=== PATIENT | male | born 1965 | race Caucasian/White ===

== ENCOUNTER 2018-02-16 19:07 | Emergency (ER) | payer SELFPAY ==
[~2018-02-16] VITALS: Ht 182.9 cm; Wt 90.0 kg
[2018-02-16] MEDS ORDERED: SODIUM CHLORIDE FLUSH 10ML SYR IVF ONE (19:30)
[2018-02-16] MEDS ORDERED: SODIUM CHLORIDE 0.9% 1,000ML IVBOLUS ONE (19:30)
[2018-02-16] MEDS ORDERED: PLEASE ENTER HEIGHT AND WEIGHT MC SCH (19:30)
[2018-02-16 19:56] LABS: PH, VENOUS 7.309 pH (7.320-7.420)
[2018-02-16 20:03] LABS: BASOPHILS # (AUTO) 0.06 x10^3/uL (0-0.1); BASOPHILS % (AUTO) 1 % (0-1); EOSINOPHILS # (AUTO) 0.13 x10^3/uL (0-0.4); EOSINOPHILS % (AUTO) 1 % (1-7); LYMPHOCYTES # (AUTO) 2.66 x10^3/uL (1-3.4); LYMPHOCYTES % (AUTO) 27 % (22-44); MD NO; MEAN CORPUSCULAR HEMOGLOBIN 28.5 pg (27.5-34.5); MEAN CORPUSCULAR HGB CONC 34.6 g/dL (33.2-36.2); MEAN CORPUSCULAR VOLUME 82.4 fL (81-97); MEAN PLATELET VOLUME 8.1 fL (7.4-10.4); MONOCYTES # (AUTO) 0.37 x10^3/uL (0.2-0.8); MONOCYTES % (AUTO) 4 % (2-9); NEUTROPHILS % (AUTO) 67 % (42-75); PLATELET COUNT 489 x10^3/uL (130-400); RED BLOOD COUNT 5.87 x10^6/uL (4.38-5.82); RED CELL DISTRIBUTION WIDTH 14.6 % (9.4-14.8)
[2018-02-16 20:08] LABS: ACETONE, SERUM Negative (Negative); ALBUMIN 4.1 g/dL (3.4-5.0); ANION GAP 14 mmol/L (5-15); CALCIUM 8.3 mg/dL (8.5-10.1); CHLORIDE 113 mmol/L (98-107)
[2018-02-16 20:10] LABS: ALANINE AMINOTRANSFERASE 39 U/L (12-78); ALKALINE PHOSPHATASE 118 U/L (45-117); BILIRUBIN,TOTAL 0.7 mg/dL (0.2-1.0); CREATININE 0.92 mg/dL (0.7-1.3); TOTAL PROTEIN 7.1 g/dL (6.4-8.2)
[2018-02-16 20:11] LABS: SALICYLATE LEVEL < 1.7 mg/dL (2.8-20.0)
[2018-02-16 20:12] LABS: ACETAMINOPHEN < 2 mcg/mL (10-30)
[2018-02-16 21:26] VITALS: BP 131/74
[2018-02-16 21:47] LABS: AMPHETAMINE SCREEN, URINE Negative (Negative); BARBITURATE SCREEN, URINE Negative (Negative); BENZODIAZEPINE SCREEN, URINE Positive (Negative); CANNABINOID SCREEN, URINE Negative (Negative); COCAINE SCREEN, URINE Negative (Negative); METHADONE SCREEN, URINE Negative (Negative); OPIATE SCREEN, URINE Negative (Negative)
[2018-02-16] MEDS ORDERED: ACETAMINOPHEN 325 MG TABLET ONE (21:55)
[2018-02-16] MEDS ORDERED: ACETAMINOPHEN 325 MG TABLET PO ONE (22:00)
[2018-02-17] MEDS ORDERED: PROMETHAZINE 25 MG/ML, 1ML IM ONE (00:30)
== END 2018-02-17 00:59 | disposition home or self-care (01) ==
LOC: ED 22:12
DX: R41.82 Altered mental status, unspecified (principal); F10.129 Alcohol abuse with intoxication, unspecified; F19.10 Other psychoactive substance abuse, uncomplicated; I10 Essential (primary) hypertension; F32.9 Major depressive disorder, single episode, unspecified
CPT/HCPCS: 36415; 80053; 80307; 80329; 82010; 82803; 83930; 85025; 93005; 96360; 96361; 99285; J7030; G0480

== ENCOUNTER 2020-04-01 03:46 | Inpatient (IN) | payer MEDICARE ==
[~2020-04-01] VITALS: Ht 182.9 cm; Wt 83.8 kg
[2020-04-01] VITALS (8 sets, daily range): BP systolic 80–104; BP diastolic 46–60
[2020-04-01] MEDS ORDERED: SODIUM CHLORIDE 0.9% 1,000ML IVBOLUS ONE ×3 (04:30→06:30)
[2020-04-01] MEDS ORDERED: PHARMACOKINETIC CONSULTATION MC ONE ×2 (04:30→12:00)
[2020-04-01] MEDS ORDERED: VANCOMYCIN PER PHARMACY MC ONE (04:30)
[2020-04-01] MEDS ORDERED: PIPERACILLIN/TAZO/PMX 3.375GM 50 ML IVPB ONE (04:30)
[2020-04-01] MEDS ORDERED: PIPERACILLIN/TAZO/PMX 3.375GM 50 ML ONE ×2 (04:44→08:38)
[2020-04-01] MEDS ORDERED: MORPHINE SULFATE 4 MG/ML, 1ML ONE ×2 (04:44→05:43)
[2020-04-01] MEDS: MORPHINE SULFATE 4 MG/ML, 1ML IVPush PRN ×2 (04:51→05:47)
[2020-04-01 04:59] LABS: MEAN CORPUSCULAR HEMOGLOBIN 26.3 pg (27.5-34.5); MEAN CORPUSCULAR HGB CONC 32.6 g/dL (33.2-36.2); MEAN PLATELET VOLUME 7.9 fL (7.4-10.4); PLATELET COUNT 487 x10^3/uL (130-400); RED CELL DISTRIBUTION WIDTH 15.6 % (9.4-14.8)
[2020-04-01] MEDS ORDERED: VANCOMYCIN 2,300 MG in SODIUM CHLORIDE 0.9% 500 ML IV ONE (05:00)
[2020-04-01 05:12] LABS: ALBUMIN 2.3 g/dL (3.4-5.0); ANION GAP 13 mmol/L (5-15); CALCIUM 8.6 mg/dL (8.5-10.1); CHLORIDE 103 mmol/L (98-107)
[2020-04-01 05:15] LABS: ALANINE AMINOTRANSFERASE 25 U/L (12-78); ALKALINE PHOSPHATASE 164 U/L (45-117); CREATININE 1.66 mg/dL (0.7-1.3); TOTAL PROTEIN 6.8 g/dL (6.4-8.2)
--- NOTE | 2020-04-01 05:21 | NUR ---
pt here for swelling and pain to left thigh. Piv placed. fluids and abx running. pt medicated for pain. us at bedside. call light in reach
--- NOTE | 2020-04-01 05:24 | NUR ---
PT TO CT
[2020-04-01 05:26] LABS: MD YES
[2020-04-01 05:30] LABS: ANISOCYTOSIS 1+; BAND#(MANUAL) 2.97 x10^3/uL; BANDS%(MANUAL) 18 % (0-7); EOS#(MANUAL) 0.17 x10^3/uL (0.0-0.4); EOS% (MANUAL) 1 % (1-7); LYMPH#(MANUAL) 0.83 x10^3/uL (1-3.4); LYMPHS% (MANUAL) 5 % (22-44); MONOS#(MANUAL) 1.16 x10^3/uL (0.3-2.7); MONOS% (MANUAL) 7 % (2-9); SEG#(MANUAL) 11.39 x10^3/uL (1.8-6.8); SEGS% (MANUAL) 69 % (42-75)
[2020-04-01] MEDS ORDERED: INSULIN REGULAR 100 UNITS/ML, 3ML VIAL IVPush ONE (05:30)
[2020-04-01] MEDS ORDERED: POTASSIUM CHLORIDE 20 MEQ in SODIUM CHLORIDE 0.9% 250 ML IV ONE (05:30)
[2020-04-01 05:31] LABS: <PLATELET ESTIMATE> INCREASED; <PLT MORPHOLOGY> NORMAL PLT MORPH; POLYCHROMASIA 1+
[2020-04-01] MEDS ORDERED: OMNIPAQUE 350 MG/ML, 100ML BOTTLE ONE (05:44)
[2020-04-01] MEDS ORDERED: METF500T17 PO (06:00)
[2020-04-01] MEDS ORDERED: INSULIN SINGLE DOSE, ER ONE (06:11)
[2020-04-01] MEDS ORDERED: SODIUM CHLORIDE 0.9% 1,000 ML IV ONE (06:19)
--- NOTE | 2020-04-01 06:20 | NUR ---
PT REPORTS FEELING DECREASE IN PAIN TO LEFT LEG AFTER MORPHINE. INFORMED PT OF ADMIT STATUS AND POSSIBLE OR. NPO. RR EQUAL AND UNLABORED, VSS, CALL LIGHT IN REACH. AIDET PROVIDED.
[2020-04-01] MEDS ORDERED: NOREPINEPHRINE 8 MG in SODIUM CHLORIDE 0.9% 242 ML IV PRN ×3 (06:30→18:46)
[2020-04-01] MEDS ORDERED: POLYETHYLENE GLYCOL 17 GM PACKET PO PRN (06:30)
[2020-04-01] MEDS ORDERED: PIPERACILLIN/TAZO/PMX 3.375GM 50 ML IV SCH (06:30)
[2020-04-01] MEDS ORDERED: BISACODYL 10 MG SUPP PR PRN (06:30)
[2020-04-01] MEDS ORDERED: CLINDAMYCIN PMX 600MG/50ML 50 ML IV ONE (06:30)
[2020-04-01] MEDS ORDERED: LORazepam 2 MG/ML, 1ML IVPush PRN (06:30)
[2020-04-01] MEDS ORDERED: VANCOMYCIN PER PHARMACY MC PRN (06:30)
[2020-04-01] MEDS ORDERED: LABETALOL 5MG/ML, 20ML IVPush PRN (06:30)
[2020-04-01] MEDS ORDERED: ONDANSETRON 2MG/ML, 2ML IVPush PRN (06:30)
[2020-04-01] MEDS: ENOXAPARIN 40 MG/0.4 ML SQ SCH (06:30)
[2020-04-01] MEDS ORDERED: CLINDAMYCIN PMX 900MG/50ML 50 ML IV SCH (06:30)
[2020-04-01] MEDS ORDERED: HYDROmorphone 1 MG/ML, 1ML INJ ONE ×2 (06:39→10:44)
--- NOTE | 2020-04-01 06:40 | NUR ---
0635: PT MOANING, VERY UNCOMFORTABLE C/O 02/28 PAIN. MEDICATED PER ORDER, AIDET PROVIDED.
[2020-04-01] MEDS: HYDROmorphone 1 MG/ML, 1ML INJ IVPush PRN ×2 (06:41→10:46)
--- NOTE | 2020-04-01 06:58 | NUR ---
SBAR RECEIVED FROM DARLING RN AT PATIENT BEDSIDE.
[2020-04-01] MEDS ORDERED: POTASSIUM CHLORIDE 20 MEQ TAB.ER.PRT PO ONE (07:00)
--- NOTE | 2020-04-01 07:22 | NUR ---
SECOND PIV PLACED. PT RESTING IN BED, CALL LIGHT IN REACH.
[2020-04-01] MEDS ORDERED: CLINDAMYCIN PMX 900MG/50ML 50 ML ONE (07:34)
--- NOTE | 2020-04-01 08:10 | NUR ---
HUMALOG PEN REQUESTED FROM PHARMACY.
[2020-04-01] MEDS ORDERED: morphine SULFATE 10 MG/ML, 1ML ONE ×2 (08:36→09:51)
[2020-04-01] MEDS ORDERED: NS + 40MEQ KCL 1,000 ML IV ONE (08:38)
[2020-04-01] MEDS: morphine SULFATE 10 MG/ML, 1ML IVPush PRN ×4 (08:44→14:23)
[2020-04-01] MEDS: INSULIN LISPRO 100 UNITS/ML, PEN SQ-INSULIN SCH ×4 (08:44→20:25)
[2020-04-01] MEDS: NS + 40MEQ KCL 1,000 ML IV SCH ×2 (08:49→18:14)
[2020-04-01] MEDS ORDERED: MAGNESIUM SULFATE PMX 4GM/100M 100 ML IV ONE (09:00)
--- NOTE | 2020-04-01 09:15 | NUR ---
4 GM Magnesium requested from pharmacy.
[2020-04-01] MEDS: SENNA/DOCUSATE TABLET PO SCH (09:19)
[2020-04-01] MEDS ORDERED: FAMOTIDINE 20 MG/2 ML ONE (09:52)
[2020-04-01] MEDS: FAMOTIDINE 20 MG/2 ML IVPush SCH ×2 (09:56→20:19)
--- NOTE | 2020-04-01 10:53 | NUR ---
PATIENT C/O 8 PAIN, MEDICATED PER eMAR.
--- NOTE | 2020-04-01 10:54 | NUR ---
REPORT GIVEN TO [facility] FOR TRANSFER OF PATIENT CARE.
--- NOTE | 2020-04-01 11:37 | NUR ---
Patient transferred to CCU, all patient belongings gathered and sent with patient. CCU RN took over care.
[2020-04-01] MEDS ORDERED: PHARMACOKINETIC MONITORING MC PRN (12:00)
[2020-04-01] MEDS: PIPERACILLIN/TAZO/PMX 3.375GM 50 ML IV SCH ×2 (12:35→17:55)
[2020-04-01] MEDS: ACETAMINOPHEN 325 MG TABLET PO PRN (12:41)
[2020-04-01] MEDS: CLINDAMYCIN PMX 900MG/50ML 50 ML IV SCH ×2 (14:11→23:22)
[2020-04-01] MEDS ORDERED: FENTANYL PF 250 MCG/5ML ONE (14:23)
[2020-04-01] MEDS ORDERED: KETOROLAC 30 MG/1 ML IVPush PRN (14:30)
[2020-04-01] MEDS ORDERED: BACITRACIN 50,000 UNIT ONE (14:30)
[2020-04-01] MEDS ORDERED: KETOROLAC 30 MG/1 ML ONE (14:34)
[2020-04-01] MEDS ORDERED: PROPOFOL 10 MG/ML, 20ML ONE (15:57)
[2020-04-01] MEDS ORDERED: EPINEPHRINE 1 MG/ML, 1ML ONE (15:57)
[2020-04-01] MEDS ORDERED: PHENYLEPHRINE 10 MG/ML ONE (15:57)
[2020-04-01] MEDS ORDERED: ROCURONIUM 10MG/ML,5ML ONE (15:57)
[2020-04-01] MEDS ORDERED: SUCCINYLCHOLINE 20 MG/ML, 10ML ONE (15:57)
[2020-04-01] MEDS ORDERED: VASOPRESSIN 20 UNIT/ML, 1ML ONE (15:57)
[2020-04-01] MEDS ORDERED: LIDOCAINE-MPF 2% ,5ML ONE (15:57)
[2020-04-01] MEDS ORDERED: NOREPINEPHRINE 1 MG/ML, 4ML ONE (15:58)
[2020-04-01] MEDS ORDERED: ALBUMIN HUMAN 5% 500 ML ONE ×2 (15:59→17:15)
[2020-04-01] MEDS ORDERED: MIDAZOLAM 1 MG/ML, 2ML ONE (16:27)
[2020-04-01] MEDS ORDERED: PROPOFOL 50 ML ONE (16:30)
[2020-04-01 18:39] LABS: MICROSCOPIC INDICATED
[2020-04-01] MEDS ORDERED: PROPOFOL 100 ML IV ONE (18:43)
[2020-04-01] MEDS ORDERED: PROPOFOL 100 ML IV PRN (18:46)
[2020-04-01] MEDS: PROPOFOL 100 ML IV PRN (18:54)
[2020-04-01] MEDS ORDERED: FENTANYL PF 1,000 MCG in SODIUM CHLORIDE 0.9% 80 ML IV PRN (19:00)
[2020-04-01] MEDS ORDERED: LIDOCAINE-MPF 1%, 2ML ENDO PRN (19:00)
[2020-04-01] MEDS ORDERED: ONDANSETRON 2MG/ML, 2ML IV PRN (19:00)
[2020-04-01] MEDS ORDERED: GLUCAGON 1 MG IM PRN (19:00)
[2020-04-01] MEDS ORDERED: DEXTROSE 50%, 50ML SYRINGE IVPush PRN (19:00)
[2020-04-01] MEDS ORDERED: DEXTROSE 4 GM TAB.CHEW PO PRN (19:00)
[2020-04-01] MEDS ORDERED: SENNA/DOCUSATE TABLET NG PRN (19:00)
[2020-04-01] MEDS ORDERED: PHARMACY MAY ADJ FOR RENAL FX MC SCH (19:00)
[2020-04-01] MEDS: FENTANYL PF 1,000 MCG in SODIUM CHLORIDE 0.9% 80 ML IV PRN (19:47)
[2020-04-01] MEDS ORDERED: SODIUM BICARB 8.4%, 50ML SYRINGE ONE (20:11)
[2020-04-01] MEDS: SODIUM CHLORIDE FLUSH 10ML SYR IVF SCH (20:19)
[2020-04-01] MEDS ORDERED: VASOPRESSIN 20 UNIT in SODIUM CHLORIDE 0.9% 99 ML IV PRN (20:30)
[2020-04-01] MEDS ORDERED: SODIUM BICARB 8.4%, 50ML SYRINGE IVPush ONE (20:30)
[2020-04-01] MEDS ORDERED: PHENYLEPHRINE 50 MG in SODIUM CHLORIDE 0.9% 245 ML IV PRN (20:30)
[2020-04-01 21:19] LABS: ANION GAP 12 mmol/L (5-15); CALCIUM 6.3 mg/dL (8.5-10.1); CHLORIDE 115 mmol/L (98-107); CREATININE 1.22 mg/dL (0.7-1.3); TRIGLYCERIDES 141 mg/dL (50-200)
[2020-04-01 21:21] LABS: MEAN CORPUSCULAR HEMOGLOBIN 27.5 pg (27.5-34.5); MEAN CORPUSCULAR HGB CONC 32.8 g/dL (33.2-36.2); MEAN PLATELET VOLUME 8.3 fL (7.4-10.4); PLATELET COUNT 400 x10^3/uL (130-400); RED CELL DISTRIBUTION WIDTH 17.2 % (9.4-14.8)
[2020-04-01 21:23] LABS: MD YES
[2020-04-01 21:29] LABS: BAND#(MANUAL) 3.99 x10^3/uL; BANDS%(MANUAL) 21 % (0-7); BASOS#(MANUAL) 0.19 x10^3/uL (0-0.1); BASOS% (MANUAL) 1 % (0-1); LYMPH#(MANUAL) 1.33 x10^3/uL (1-3.4); LYMPHS% (MANUAL) 7 % (22-44); MONOS#(MANUAL) 0.76 x10^3/uL (0.3-2.7); MONOS% (MANUAL) 4 % (2-9); SEG#(MANUAL) 12.73 x10^3/uL (1.8-6.8); SEGS% (MANUAL) 67 % (42-75)
[2020-04-01 21:30] LABS: ANISOCYTOSIS 1+; HYPOCHROMIA 1+; MICROCYTOSIS 1+; POLYCHROMASIA 1+
[2020-04-01] MEDS ORDERED: CALCIUM GLUCONATE IV ONE (21:30)
[2020-04-01 21:31] LABS: <PLATELET ESTIMATE> ADEQUATE; <PLT MORPHOLOGY> NORMAL PLT MORPH
[2020-04-01] MEDS ORDERED: CALCIUM GLUCONATE 4.6 MEQ in SODIUM CHLORIDE 0.9% 100 ML IV ONE (22:00)
[2020-04-02] VITALS (7 sets, daily range): BP systolic 76–99; BP diastolic 47–60
[2020-04-02] MEDS ORDERED: VANCOMYCIN 1,800 MG in SODIUM CHLORIDE 0.9% 250 ML IV SCH
[2020-04-02] MEDS: PIPERACILLIN/TAZO/PMX 3.375GM 50 ML IV SCH ×5 (00:11→22:57)
[2020-04-02] MEDS: NOREPINEPHRINE 32 MG in SODIUM CHLORIDE 0.9% 218 ML IV PRN ×2 (00:13→13:39)
[2020-04-02] MEDS: PROPOFOL 100 ML IV PRN ×6 (01:54→22:48)
[2020-04-02] MEDS: NS + 40MEQ KCL 1,000 ML IV SCH (04:10)
[2020-04-02 04:15] LABS: MEAN CORPUSCULAR HEMOGLOBIN 28.3 pg (27.5-34.5); MEAN CORPUSCULAR HGB CONC 32.8 g/dL (33.2-36.2); MEAN PLATELET VOLUME 8.5 fL (7.4-10.4); PLATELET COUNT 260 x10^3/uL (130-400); RED BLOOD COUNT 2.95 x10^6/uL (4.38-5.82)
[2020-04-02] MEDS: ACETAMINOPHEN 325 MG TABLET PO PRN ×2 (04:20→07:51)
[2020-04-02 04:23] LABS: ALANINE AMINOTRANSFERASE 18 U/L (12-78); ALBUMIN 1.7 g/dL (3.4-5.0); ANION GAP 8 mmol/L (5-15); CALCIUM 6.4 mg/dL (8.5-10.1); CHLORIDE 120 mmol/L (98-107); CREATININE 1.65 mg/dL (0.7-1.3)
[2020-04-02 04:25] LABS: ALKALINE PHOSPHATASE 69 U/L (45-117); BILIRUBIN,TOTAL 1.9 mg/dL (0.2-1.0); CREATINE KINASE, TOTAL 481 U/L (39-308); TOTAL PROTEIN 4.2 g/dL (6.4-8.2)
[2020-04-02] MEDS: INSULIN LISPRO 100 UNITS/ML, PEN SQ-INSULIN SCH ×4 (04:39→21:19)
[2020-04-02 05:17] LABS: MD YES
[2020-04-02 05:20] LABS: BAND#(MANUAL) 2.04 x10^3/uL; BANDS%(MANUAL) 15 % (0-7); LYMPHS% (MANUAL) 14 % (22-44); MONOS#(MANUAL) 0.95 x10^3/uL (0.3-2.7); MONOS% (MANUAL) 7 % (2-9); SEGS% (MANUAL) 64 % (42-75)
[2020-04-02 05:22] LABS: <PLATELET ESTIMATE> ADEQUATE; ANISOCYTOSIS 1+; MICROCYTOSIS 1+; OVALOCYTES 1+; POLYCHROMASIA 1+
[2020-04-02 05:23] LABS: <PLT MORPHOLOGY> NORMAL PLT MORPH
[2020-04-02] MEDS: CLINDAMYCIN PMX 900MG/50ML 50 ML IV SCH (06:32)
[2020-04-02] MEDS: SODIUM CHLORIDE 0.45% 1,000 ML IV SCH ×2 (06:34→16:01)
[2020-04-02] MEDS: SENNA/DOCUSATE TABLET PO SCH (07:27)
[2020-04-02] MEDS: FAMOTIDINE 20 MG/2 ML IVPush SCH ×2 (08:48→21:18)
[2020-04-02] MEDS: ENOXAPARIN 40 MG/0.4 ML SQ SCH (08:48)
[2020-04-02] MEDS: SODIUM CHLORIDE FLUSH 10ML SYR IVF SCH ×2 (08:49→21:18)
[2020-04-02] MEDS ORDERED: PANTOPRAZOLE 40 MG IV IV SCH (09:00)
[2020-04-02] MEDS: INSULIN GLARGINE 100 UNITS/ML, PEN SQ-INSULIN SCH ×2 (09:00→21:19)
[2020-04-02] MEDS ORDERED: PANTOPRAZOLE 40 MG IV ONE (09:06)
[2020-04-02] MEDS: FENTANYL PF 1,000 MCG in SODIUM CHLORIDE 0.9% 80 ML IV PRN ×2 (09:19→19:23)
[2020-04-02] MEDS ORDERED: SODIUM CHLORIDE 0.9% 1,000ML IVBOLUS ONE (12:30)
[2020-04-02] MEDS: CALCIUM CARBONATE 500 MG TAB.CHEW PO SCH ×2 (16:01→21:18)
[2020-04-02] MEDS ORDERED: ACETAMINOPHEN 650 MG/20.3 ML UDC ONE (17:39)
[2020-04-02] MEDS ORDERED: ACETAMINOPHEN 650 MG/20.3 ML UDC PO PRN (18:00)
[2020-04-03] VITALS (15 sets, daily range): BP systolic 92–120; BP diastolic 45–70
[2020-04-03] MEDS: INSULIN LISPRO 100 UNITS/ML, PEN SQ-INSULIN SCH ×4 (04:06→21:07)
[2020-04-03] MEDS: PIPERACILLIN/TAZO/PMX 3.375GM 50 ML IV SCH (04:06)
[2020-04-03] MEDS: PROPOFOL 100 ML IV PRN ×4 (04:06→23:32)
[2020-04-03 04:12] LABS: ANION GAP 10 mmol/L (5-15); CALCIUM 6.6 mg/dL (8.5-10.1); CHLORIDE 115 mmol/L (98-107); CREATININE 2.48 mg/dL (0.7-1.3)
[2020-04-03 04:30] LABS: MEAN CORPUSCULAR HGB CONC 34.9 g/dL (33.2-36.2); MEAN PLATELET VOLUME 8.5 fL (7.4-10.4); PLATELET COUNT 115 x10^3/uL (130-400); RED BLOOD COUNT 1.87 x10^6/uL (4.38-5.82); RED CELL DISTRIBUTION WIDTH 16.4 % (9.4-14.8)
[2020-04-03 05:18] LABS: MD YES
[2020-04-03 05:22] LABS: ANISOCYTOSIS 1+; BAND#(MANUAL) 2.23 x10^3/uL; BANDS%(MANUAL) 18 % (0-7); LYMPH#(MANUAL) 2.23 x10^3/uL (1-3.4); LYMPHS% (MANUAL) 18 % (22-44); MICROCYTOSIS 1+; MYELOCYTES# (MANUAL) 0.25 x10^3/uL (0-0); MYELOCYTES% (MANUAL) 2 % (0-0); OVALOCYTES 1+; POLYCHROMASIA 1+; SEG#(MANUAL) 7.69 x10^3/uL (1.8-6.8); SEGS% (MANUAL) 62 % (42-75)
[2020-04-03 05:23] LABS: <PLATELET ESTIMATE> DECREASED; LARGE PLATELETS 1+
[2020-04-03] MEDS: FENTANYL PF 1,000 MCG in SODIUM CHLORIDE 0.9% 80 ML IV PRN ×2 (05:24→16:42)
[2020-04-03] MEDS: SODIUM CHLORIDE 0.45% 1,000 ML IV SCH ×2 (06:48→16:42)
[2020-04-03] MEDS ORDERED: PHENYLEPHRINE 10 MG/ML ONE (06:58)
[2020-04-03] MEDS ORDERED: EPINEPHRINE 1 MG/ML, 1ML ONE (06:59)
[2020-04-03] MEDS ORDERED: MEROPENEM 500 MG in SODIUM CHLORIDE 0.9% 100 ML IV SCH (07:00)
[2020-04-03] MEDS ORDERED: ROCURONIUM 10MG/ML,5ML ONE (07:01)
[2020-04-03] MEDS ORDERED: PROPOFOL 50 ML ONE (08:05)
[2020-04-03] MEDS: SENNA/DOCUSATE TABLET PO SCH (09:00)
[2020-04-03] MEDS: CALCIUM CARBONATE 500 MG TAB.CHEW PO SCH ×3 (09:02→21:06)
[2020-04-03] MEDS: SODIUM CHLORIDE FLUSH 10ML SYR IVF SCH ×2 (09:03→21:06)
[2020-04-03] MEDS: FAMOTIDINE 20 MG/2 ML IVPush SCH ×2 (09:03→21:06)
[2020-04-03] MEDS: INSULIN GLARGINE 100 UNITS/ML, PEN SQ-INSULIN SCH ×2 (09:17→21:07)
[2020-04-03] MEDS: MEROPENEM 1 GM in SODIUM CHLORIDE 0.9% 100 ML IVPB SCH ×2 (09:22→21:08)
[2020-04-03 19:27] LABS: INTERNATIONAL NORMALIZED RATIO 0.96 (0.93-1.1); PROTHROMBIN TIME 9.9 Seconds (9.6-11.5)
[2020-04-04] VITALS (8 sets, daily range): BP systolic 109–144; BP diastolic 57–72
[2020-04-04] MEDS: FENTANYL PF 1,000 MCG in SODIUM CHLORIDE 0.9% 80 ML IV PRN ×3 (02:15→18:43)
[2020-04-04] MEDS: PROPOFOL 100 ML IV PRN ×5 (03:06→20:39)
[2020-04-04 03:13] LABS: ANION GAP 7 mmol/L (5-15); CALCIUM 6.2 mg/dL (8.5-10.1); CHLORIDE 116 mmol/L (98-107); CREATININE 2.24 mg/dL (0.7-1.3); TRIGLYCERIDES 467 mg/dL (50-200)
[2020-04-04] MEDS: INSULIN LISPRO 100 UNITS/ML, PEN SQ-INSULIN SCH ×4 (03:19→21:06)
[2020-04-04 03:27] LABS: MEAN CORPUSCULAR HGB CONC 33.7 g/dL (33.2-36.2); MEAN PLATELET VOLUME 9.3 fL (7.4-10.4); PLATELET COUNT 88 x10^3/uL (130-400); RED BLOOD COUNT 2.74 x10^6/uL (4.38-5.82); RED CELL DISTRIBUTION WIDTH 20.9 % (9.4-14.8)
[2020-04-04 03:30] LABS: MD YES
[2020-04-04 03:34] LABS: BANDS%(MANUAL) 6 % (0-7); LYMPH#(MANUAL) 1.34 x10^3/uL (1-3.4); LYMPHS% (MANUAL) 10 % (22-44); MONOS#(MANUAL) 0.27 x10^3/uL (0.3-2.7); MONOS% (MANUAL) 2 % (2-9); SEG#(MANUAL) 10.99 x10^3/uL (1.8-6.8); SEGS% (MANUAL) 82 % (42-75)
[2020-04-04 03:35] LABS: ANISOCYTOSIS 1+
[2020-04-04 03:36] LABS: MICROCYTOSIS 1+; OVALOCYTES 1+; POLYCHROMASIA 1+
[2020-04-04 03:37] LABS: <PLATELET ESTIMATE> DECREASED; LARGE PLATELETS 1+
[2020-04-04] MEDS: SODIUM CHLORIDE 0.45% 1,000 ML IV SCH (04:22)
[2020-04-04] MEDS: SODIUM CHLORIDE FLUSH 10ML SYR IVF SCH ×2 (07:43→20:38)
[2020-04-04] MEDS: SENNA/DOCUSATE TABLET PO SCH (07:44)
[2020-04-04] MEDS: CALCIUM CARBONATE 500 MG TAB.CHEW PO SCH ×3 (07:44→20:38)
[2020-04-04] MEDS: MEROPENEM 1 GM in SODIUM CHLORIDE 0.9% 100 ML IVPB SCH ×2 (09:22→21:06)
[2020-04-04] MEDS: INSULIN GLARGINE 100 UNITS/ML, PEN SQ-INSULIN SCH ×2 (09:26→21:05)
[2020-04-04 11:29] LABS: HEMOGRAM NOTE RECHECKED
[2020-04-04] MEDS: morphine SULFATE 10 MG/ML, 1ML IVPush PRN (15:24)
[2020-04-04] MEDS: FAMOTIDINE 20 MG/2 ML IVPush SCH (20:38)
[2020-04-04] MEDS: MIDAZOLAM 1 MG/ML, 2ML IVPush PRN (21:10)
[2020-04-05] MEDS: MIDAZOLAM 1 MG/ML, 2ML IVPush PRN ×2 (01:08→07:31)
[2020-04-05] MEDS: PROPOFOL 100 ML IV PRN ×2 (01:09→09:38)
[2020-04-05] MEDS: FENTANYL PF 1,000 MCG in SODIUM CHLORIDE 0.9% 80 ML IV PRN ×2 (01:19→10:12)
[2020-04-05 04:06] LABS: BASOPHILS # (AUTO) 0.09 x10^3/uL (0-0.1); BASOPHILS % (AUTO) 1 % (0-1); EOSINOPHILS # (AUTO) 0.19 x10^3/uL (0-0.4); EOSINOPHILS % (AUTO) 2 % (1-7); LYMPHOCYTES # (AUTO) 1.86 x10^3/uL (1-3.4); LYMPHOCYTES % (AUTO) 16 % (22-44); MD NO; MEAN CORPUSCULAR HEMOGLOBIN 29.1 pg (27.5-34.5); MEAN CORPUSCULAR HGB CONC 34.8 g/dL (33.2-36.2); MEAN PLATELET VOLUME 9.2 fL (7.4-10.4); MONOCYTES # (AUTO) 0.66 x10^3/uL (0.2-0.8); MONOCYTES % (AUTO) 6 % (2-9); NEUTROPHILS # (AUTO) 8.86 x10^3/uL (1.8-6.8); NEUTROPHILS % (AUTO) 76 % (42-75); PLATELET COUNT 100 x10^3/uL (130-400); RED BLOOD COUNT 2.88 x10^6/uL (4.38-5.82); RED CELL DISTRIBUTION WIDTH 19.7 % (9.4-14.8)
[2020-04-05 04:17] LABS: ANION GAP 7 mmol/L (5-15); CALCIUM 6.6 mg/dL (8.5-10.1); CHLORIDE 113 mmol/L (98-107); CREATININE 1.54 mg/dL (0.7-1.3)
[2020-04-05] MEDS: INSULIN LISPRO 100 UNITS/ML, PEN SQ-INSULIN SCH ×4 (04:22→21:52)
[2020-04-05] MEDS: CEFTRIAXONE PMX 2GM/50ML 50 ML IV SCH (07:09)
[2020-04-05] MEDS: SENNA/DOCUSATE TABLET PO SCH (09:35)
[2020-04-05] MEDS: CALCIUM CARBONATE 500 MG TAB.CHEW PO SCH ×3 (09:35→21:50)
[2020-04-05] MEDS: SODIUM CHLORIDE FLUSH 10ML SYR IVF SCH ×2 (09:36→21:52)
[2020-04-05] MEDS: INSULIN GLARGINE 100 UNITS/ML, PEN SQ-INSULIN SCH ×2 (09:37→21:51)
[2020-04-05] MEDS: OXYcodone IR 30 MG TABLET PO SCH ×3 (12:29→23:23)
[2020-04-05] MEDS: OXYcodone IR 5MG TABLET PO PRN (19:41)
[2020-04-05] MEDS ORDERED: FAMOTIDINE 20 MG/2 ML IVPush SCH (21:00)
[2020-04-05] MEDS: ACETAMINOPHEN 325 MG TABLET PO PRN (21:50)
[2020-04-06] MEDS: OXYcodone IR 5MG TABLET PO PRN ×4 (03:34→22:23)
[2020-04-06] MEDS: INSULIN LISPRO 100 UNITS/ML, PEN SQ-INSULIN SCH ×5 (03:41→22:30)
[2020-04-06 04:02] LABS: ANION GAP 7 mmol/L (5-15); CALCIUM 7.1 mg/dL (8.5-10.1); CHLORIDE 112 mmol/L (98-107); CREATININE 1.08 mg/dL (0.7-1.3)
[2020-04-06 04:05] LABS: MEAN CORPUSCULAR HEMOGLOBIN 28.9 pg (27.5-34.5); MEAN CORPUSCULAR HGB CONC 33.7 g/dL (33.2-36.2); MEAN PLATELET VOLUME 8.4 fL (7.4-10.4); PLATELET COUNT 164 x10^3/uL (130-400); RED BLOOD COUNT 2.72 x10^6/uL (4.38-5.82); RED CELL DISTRIBUTION WIDTH 19.5 % (9.4-14.8)
[2020-04-06 04:22] LABS: BASOPHILS # (AUTO) 0.02 x10^3/uL (0-0.1); BASOPHILS % (AUTO) 0 % (0-1); EOSINOPHILS % (AUTO) 1 % (1-7); LYMPHOCYTES # (AUTO) 1.69 x10^3/uL (1-3.4); LYMPHOCYTES % (AUTO) 13 % (22-44); MD SCAN; MONOCYTES # (AUTO) 1.04 x10^3/uL (0.2-0.8); MONOCYTES % (AUTO) 8 % (2-9); NEUTROPHILS # (AUTO) 10.71 x10^3/uL (1.8-6.8); NEUTROPHILS % (AUTO) 79 % (42-75)
[2020-04-06] MEDS ORDERED: POTASSIUM CHLORIDE 10% 40 MEQ/30 ML UDC PO ONE (06:30)
[2020-04-06 07:35] LABS: FIO2 RA %
[2020-04-06] MEDS: SENNA/DOCUSATE TABLET PO SCH (09:00)
[2020-04-06] MEDS: CEFTRIAXONE PMX 2GM/50ML 50 ML IV SCH (09:15)
[2020-04-06] MEDS: CALCIUM CARBONATE 500 MG TAB.CHEW PO SCH ×3 (09:15→22:23)
[2020-04-06] MEDS: INSULIN GLARGINE 100 UNITS/ML, PEN SQ-INSULIN SCH ×2 (09:19→22:30)
[2020-04-06] MEDS: SODIUM CHLORIDE FLUSH 10ML SYR IVF SCH ×2 (09:20→22:23)
[2020-04-06] MEDS: KETOROLAC 30 MG/1 ML IVPush PRN ×2 (12:50→19:26)
[2020-04-06] MEDS ORDERED: FLU VACC QS2020-21(6MOS UP)/PF 60MCG/0.5 ML SYR IM-VACC ONE (13:30)
[2020-04-06 14:55] VITALS: BP 122/60
[2020-04-06] MEDS: AMPICILLIN/SULBACTAM 3 GM in SODIUM CHLORIDE 0.9% 100 ML IV SCH ×2 (14:57→20:40)
[2020-04-06 19:06] VITALS: BP 107/66
[2020-04-07 00:14] VITALS: BP 145/79
[2020-04-07] MEDS: AMPICILLIN/SULBACTAM 3 GM in SODIUM CHLORIDE 0.9% 100 ML IV SCH ×4 (02:04→20:26)
[2020-04-07] MEDS: OXYcodone IR 5MG TABLET PO PRN ×5 (02:11→22:31)
[2020-04-07] MEDS: INSULIN LISPRO 100 UNITS/ML, PEN SQ-INSULIN SCH ×4 (07:00→20:46)
[2020-04-07 08:45] VITALS: BP 142/78
[2020-04-07] MEDS: CALCIUM CARBONATE 500 MG TAB.CHEW PO SCH ×3 (09:00→20:45)
[2020-04-07] MEDS: SODIUM CHLORIDE FLUSH 10ML SYR IVF SCH ×2 (09:00→20:26)
[2020-04-07] MEDS: INSULIN GLARGINE 100 UNITS/ML, PEN SQ-INSULIN SCH ×2 (09:00→20:46)
[2020-04-07] MEDS: SENNA/DOCUSATE TABLET PO SCH (09:00)
[2020-04-07 13:52] VITALS: BP 146/80
[2020-04-07] MEDS ORDERED: MIDAZOLAM 1 MG/ML, 2ML ONE (16:12)
[2020-04-07] MEDS ORDERED: FENTANYL PF 250 MCG/5ML ONE (16:12)
[2020-04-07] MEDS ORDERED: NEOSTIGMINE 1 MG/ML, 10ML ONE (16:13)
[2020-04-07] MEDS ORDERED: GLYCOPYRROLATE 0.2MG/1ML, 5ML ONE (16:13)
[2020-04-07] MEDS ORDERED: CEFAZOLIN 1,000 MG ONE (16:13)
[2020-04-07] MEDS ORDERED: PROPOFOL 10 MG/ML, 20ML ONE (16:13)
[2020-04-07] MEDS ORDERED: ROCURONIUM 10MG/ML,5ML ONE (16:13)
[2020-04-07] MEDS ORDERED: ONDANSETRON 2MG/ML, 2ML IVPush PRN (17:00)
[2020-04-07] MEDS ORDERED: OXYcodone 5 MG/5 ML ORAL.SOL UDC PO PRN (17:00)
[2020-04-07] MEDS ORDERED: morphine SULFATE 10 MG/ML, 1ML IVPush PRN (17:00)
[2020-04-07] MEDS ORDERED: LABETALOL 5MG/ML, 20ML IV PRN (17:00)
[2020-04-07] MEDS ORDERED: FENTANYL PF 100 MCG/2ML IV PRN (17:00)
[2020-04-07] MEDS ORDERED: ACETAMINOPHEN 325 MG TABLET PO PRN (17:00)
[2020-04-07] MEDS ORDERED: hydrALAzine 20 MG/ML, 1ML IV PRN (17:00)
[2020-04-07] MEDS ORDERED: MEPERIDINE/PF 25MG/0.5ML IVPush PRN (17:00)
[2020-04-07] MEDS ORDERED: HYDROmorphone 1 MG/ML, 1ML INJ IVPush PRN (17:00)
[2020-04-07] MEDS ORDERED: OXYcodone 5 MG/5 ML ORAL.SOL UDC ONE (18:17)
[2020-04-07] MEDS ORDERED: FENTANYL PF 100 MCG/2ML ONE (18:17)
[2020-04-07 19:28] VITALS: BP 152/76
[2020-04-08 00:47] VITALS: BP 134/77
[2020-04-08] MEDS: OXYcodone IR 5MG TABLET PO PRN ×5 (02:40→19:49)
[2020-04-08] MEDS: AMPICILLIN/SULBACTAM 3 GM in SODIUM CHLORIDE 0.9% 100 ML IV SCH ×4 (02:40→20:05)
[2020-04-08 04:49] LABS: MEAN CORPUSCULAR HEMOGLOBIN 29.2 pg (27.5-34.5); MEAN CORPUSCULAR HGB CONC 33.5 g/dL (33.2-36.2); MEAN PLATELET VOLUME 7.7 fL (7.4-10.4); PLATELET COUNT 397 x10^3/uL (130-400); RED BLOOD COUNT 2.77 x10^6/uL (4.38-5.82); RED CELL DISTRIBUTION WIDTH 18.9 % (9.4-14.8)
[2020-04-08 04:54] LABS: ALBUMIN 1.7 g/dL (3.4-5.0); ANION GAP 8 mmol/L (5-15); CALCIUM 7.6 mg/dL (8.5-10.1); CHLORIDE 108 mmol/L (98-107)
[2020-04-08 04:58] LABS: ALANINE AMINOTRANSFERASE 11 U/L (12-78); ALKALINE PHOSPHATASE 76 U/L (45-117); BILIRUBIN,TOTAL 0.8 mg/dL (0.2-1.0); CREATININE 0.83 mg/dL (0.7-1.3); TOTAL PROTEIN 5.4 g/dL (6.4-8.2)
[2020-04-08 05:33] LABS: BASOPHILS # (AUTO) 0.15 x10^3/uL (0-0.1); BASOPHILS % (AUTO) 1 % (0-1); EOSINOPHILS # (AUTO) 0.13 x10^3/uL (0-0.4); EOSINOPHILS % (AUTO) 1 % (1-7); LYMPHOCYTES # (AUTO) 1.78 x10^3/uL (1-3.4); LYMPHOCYTES % (AUTO) 12 % (22-44); MD SCAN; MONOCYTES # (AUTO) 1.11 x10^3/uL (0.2-0.8); MONOCYTES % (AUTO) 7 % (2-9); NEUTROPHILS # (AUTO) 12.12 x10^3/uL (1.8-6.8); NEUTROPHILS % (AUTO) 79 % (42-75)
[2020-04-08] MEDS: INSULIN LISPRO 100 UNITS/ML, PEN SQ-INSULIN SCH ×4 (07:00→20:06)
[2020-04-08 07:20] VITALS: BP 146/80
[2020-04-08] MEDS: SODIUM CHLORIDE FLUSH 10ML SYR IVF SCH ×2 (08:27→20:07)
[2020-04-08] MEDS: SENNA/DOCUSATE TABLET PO SCH (08:27)
[2020-04-08] MEDS: CALCIUM CARBONATE 500 MG TAB.CHEW PO SCH ×3 (08:27→20:05)
[2020-04-08] MEDS: INSULIN GLARGINE 100 UNITS/ML, PEN SQ-INSULIN SCH ×2 (08:28→20:06)
[2020-04-08] MEDS: KETOROLAC 30 MG/1 ML IVPush PRN ×2 (10:29→22:26)
[2020-04-08 13:47] VITALS: BP 148/76
[2020-04-08] MEDS: LACTOBACILLUS CHEW TABLET PO SCH ×2 (15:38→20:06)
[2020-04-08 18:40] VITALS: BP 116/72
[2020-04-09 00:17] VITALS: BP 133/75
[2020-04-09] MEDS: OXYcodone IR 5MG TABLET PO PRN ×6 (01:30→23:18)
[2020-04-09] MEDS: AMPICILLIN/SULBACTAM 3 GM in SODIUM CHLORIDE 0.9% 100 ML IV SCH ×4 (02:25→20:29)
[2020-04-09 05:12] LABS: CHLORIDE 108 mmol/L (98-107)
[2020-04-09 05:22] LABS: MEAN CORPUSCULAR HEMOGLOBIN 29.1 pg (27.5-34.5); MEAN CORPUSCULAR HGB CONC 33.3 g/dL (33.2-36.2); MEAN PLATELET VOLUME 7.5 fL (7.4-10.4); PLATELET COUNT 443 x10^3/uL (130-400); RED BLOOD COUNT 2.63 x10^6/uL (4.38-5.82); RED CELL DISTRIBUTION WIDTH 18.5 % (9.4-14.8)
[2020-04-09 05:25] LABS: ANION GAP 9 mmol/L (5-15); CALCIUM 7.5 mg/dL (8.5-10.1); CREATININE 0.67 mg/dL (0.7-1.3)
[2020-04-09 06:32] LABS: MD YES
[2020-04-09 06:35] LABS: ANISOCYTOSIS 1+; BAND#(MANUAL) 0.74 x10^3/uL; BANDS%(MANUAL) 7 % (0-7); LYMPH#(MANUAL) 1.27 x10^3/uL (1-3.4); LYMPHS% (MANUAL) 12 % (22-44); METAMYELOCYTES# (MANUAL) 0.53 x10^3/uL (0-0); METAMYELOCYTES% (MANUAL) 5 % (0-1); MONOS#(MANUAL) 0.95 x10^3/uL (0.3-2.7); MONOS% (MANUAL) 9 % (2-9); MYELOCYTES# (MANUAL) 0.21 x10^3/uL (0-0); MYELOCYTES% (MANUAL) 2 % (0-0); SEG#(MANUAL) 6.89 x10^3/uL (1.8-6.8); SEGS% (MANUAL) 65 % (42-75)
[2020-04-09 06:36] LABS: <PLATELET ESTIMATE> INCREASED; <PLT MORPHOLOGY> NORMAL PLT MORPH; POLYCHROMASIA 1+
[2020-04-09] MEDS: INSULIN LISPRO 100 UNITS/ML, PEN SQ-INSULIN SCH ×4 (07:00→20:28)
[2020-04-09 07:02] VITALS: BP 131/85
[2020-04-09] MEDS: SENNA/DOCUSATE TABLET PO SCH (07:54)
[2020-04-09] MEDS: CALCIUM CARBONATE 500 MG TAB.CHEW PO SCH ×3 (08:20→20:15)
[2020-04-09] MEDS: SODIUM CHLORIDE FLUSH 10ML SYR IVF SCH ×2 (08:20→20:29)
[2020-04-09] MEDS: LACTOBACILLUS CHEW TABLET PO SCH ×3 (08:20→20:14)
[2020-04-09] MEDS: INSULIN GLARGINE 100 UNITS/ML, PEN SQ-INSULIN SCH ×2 (08:25→20:27)
[2020-04-09] MEDS: KETOROLAC 30 MG/1 ML IVPush PRN ×2 (11:34→20:14)
[2020-04-09 13:31] VITALS: BP 123/69
[2020-04-09] MEDS: HEPARIN 5,000 UNITS/ML, 1ML SQ SCH (16:50)
[2020-04-09 18:42] VITALS: BP 144/74
[2020-04-10] VITALS (11 sets, daily range): BP systolic 114–128; BP diastolic 64–83
[2020-04-10] MEDS: HEPARIN 5,000 UNITS/ML, 1ML SQ SCH ×3 (00:37→16:14)
[2020-04-10] MEDS: KETOROLAC 30 MG/1 ML IVPush PRN ×2 (02:45→12:50)
[2020-04-10] MEDS: AMPICILLIN/SULBACTAM 3 GM in SODIUM CHLORIDE 0.9% 100 ML IV SCH ×4 (02:45→20:08)
[2020-04-10] MEDS: OXYcodone IR 5MG TABLET PO PRN ×4 (04:36→18:43)
[2020-04-10 06:06] LABS: ANION GAP 7 mmol/L (5-15); CALCIUM 7.6 mg/dL (8.5-10.1); CHLORIDE 107 mmol/L (98-107)
[2020-04-10 06:07] LABS: CREATININE 0.66 mg/dL (0.7-1.3)
[2020-04-10 06:08] LABS: MEAN CORPUSCULAR HEMOGLOBIN 28.3 pg (27.5-34.5); MEAN CORPUSCULAR HGB CONC 32.9 g/dL (33.2-36.2); MEAN PLATELET VOLUME 7.4 fL (7.4-10.4); PLATELET COUNT 558 x10^3/uL (130-400); RED BLOOD COUNT 2.64 x10^6/uL (4.38-5.82); RED CELL DISTRIBUTION WIDTH 18.2 % (9.4-14.8)
[2020-04-10 06:34] LABS: MD YES
[2020-04-10 06:36] LABS: ANISOCYTOSIS 1+; BAND#(MANUAL) 0.46 x10^3/uL; BANDS%(MANUAL) 5 % (0-7); BASOS#(MANUAL) 0.09 x10^3/uL (0-0.1); BASOS% (MANUAL) 1 % (0-1); EOS#(MANUAL) 0.09 x10^3/uL (0.0-0.4); EOS% (MANUAL) 1 % (1-7); LYMPH#(MANUAL) 1.37 x10^3/uL (1-3.4); LYMPHS% (MANUAL) 15 % (22-44); METAMYELOCYTES# (MANUAL) 0.18 x10^3/uL (0-0); METAMYELOCYTES% (MANUAL) 2 % (0-1); MONOS#(MANUAL) 0.91 x10^3/uL (0.3-2.7); MONOS% (MANUAL) 10 % (2-9); POLYCHROMASIA 1+; SEG#(MANUAL) 6.01 x10^3/uL (1.8-6.8); SEGS% (MANUAL) 66 % (42-75)
[2020-04-10 06:37] LABS: <PLATELET ESTIMATE> INCREASED; <PLT MORPHOLOGY> NORMAL PLT MORPH
[2020-04-10] MEDS: INSULIN LISPRO 100 UNITS/ML, PEN SQ-INSULIN SCH ×4 (07:00→21:52)
[2020-04-10] MEDS: CALCIUM CARBONATE 500 MG TAB.CHEW PO SCH ×3 (08:42→21:51)
[2020-04-10] MEDS: SENNA/DOCUSATE TABLET PO SCH (08:42)
[2020-04-10] MEDS: INSULIN GLARGINE 100 UNITS/ML, PEN SQ-INSULIN SCH ×2 (08:43→21:52)
[2020-04-10] MEDS: LACTOBACILLUS CHEW TABLET PO SCH ×3 (08:43→21:51)
[2020-04-10] MEDS: SODIUM CHLORIDE FLUSH 10ML SYR IVF SCH ×2 (08:44→20:08)
[2020-04-10] MEDS ORDERED: PNEUMOCOCCAL 23 VACCINE IM-VACC ONE (13:00)
[2020-04-10] MEDS ORDERED: OMNIPAQUE 350 MG/ML, 100ML BOTTLE ONE (13:09)
--- NOTE | 2020-04-10 18:43 | NUR ---
SANDRA LARA - Fall Risk Medications present (LORAZEPAM, MORPHINE, OXYCODONE, SENNA S) and receiving anticoagulants (HEPARIN). Signed: 04/10/20 at 1845 by Karen GARIBAY
[2020-04-11 00:39] VITALS: BP 146/89
[2020-04-11] MEDS: KETOROLAC 30 MG/1 ML IVPush PRN (02:36)
[2020-04-11] MEDS: AMPICILLIN/SULBACTAM 3 GM in SODIUM CHLORIDE 0.9% 100 ML IV SCH ×4 (02:36→21:09)
[2020-04-11] MEDS: OXYcodone IR 5MG TABLET PO PRN ×5 (04:30→17:40)
[2020-04-11 06:48] VITALS: BP 132/79
[2020-04-11] MEDS: INSULIN LISPRO 100 UNITS/ML, PEN SQ-INSULIN SCH ×4 (07:00→21:11)
[2020-04-11 07:55] LABS: MEAN CORPUSCULAR HEMOGLOBIN 27.7 pg (27.5-34.5); MEAN CORPUSCULAR HGB CONC 32.9 g/dL (33.2-36.2); MEAN PLATELET VOLUME 6.9 fL (7.4-10.4); PLATELET COUNT 782 x10^3/uL (130-400); RED BLOOD COUNT 2.87 x10^6/uL (4.38-5.82); RED CELL DISTRIBUTION WIDTH 18.7 % (9.4-14.8)
[2020-04-11 08:03] LABS: ANION GAP 6 mmol/L (5-15); CALCIUM 8.2 mg/dL (8.5-10.1); CHLORIDE 105 mmol/L (98-107); CREATININE 0.83 mg/dL (0.7-1.3)
[2020-04-11] MEDS: SENNA/DOCUSATE TABLET PO SCH (08:28)
[2020-04-11] MEDS: LACTOBACILLUS CHEW TABLET PO SCH ×3 (08:28→21:09)
[2020-04-11] MEDS: CALCIUM CARBONATE 500 MG TAB.CHEW PO SCH ×3 (08:28→21:09)
[2020-04-11] MEDS: INSULIN GLARGINE 100 UNITS/ML, PEN SQ-INSULIN SCH ×2 (08:29→21:11)
[2020-04-11] MEDS: SODIUM CHLORIDE FLUSH 10ML SYR IVF SCH ×2 (08:29→21:09)
[2020-04-11] MEDS: HEPARIN 5,000 UNITS/ML, 1ML SQ SCH ×3 (08:29→15:47)
[2020-04-11 08:44] LABS: BASOPHILS # (AUTO) 0.06 x10^3/uL (0-0.1); BASOPHILS % (AUTO) 1 % (0-1); EOSINOPHILS # (AUTO) 0.37 x10^3/uL (0-0.4); EOSINOPHILS % (AUTO) 3 % (1-7); LYMPHOCYTES # (AUTO) 2.19 x10^3/uL (1-3.4); LYMPHOCYTES % (AUTO) 18 % (22-44); MD SCAN; MONOCYTES # (AUTO) 0.91 x10^3/uL (0.2-0.8); MONOCYTES % (AUTO) 8 % (2-9); NEUTROPHILS # (AUTO) 8.46 x10^3/uL (1.8-6.8); NEUTROPHILS % (AUTO) 71 % (42-75)
[2020-04-11 12:54] VITALS: BP 131/64
[2020-04-11 21:12] VITALS: BP 105/61
[2020-04-12] MEDS: HEPARIN 5,000 UNITS/ML, 1ML SQ SCH ×3 (00:29→16:58)
[2020-04-12] MEDS: OXYcodone IR 5MG TABLET PO PRN ×5 (00:29→21:27)
[2020-04-12] MEDS: AMPICILLIN/SULBACTAM 3 GM in SODIUM CHLORIDE 0.9% 100 ML IV SCH ×4 (02:32→20:48)
[2020-04-12 02:40] VITALS: BP 115/66
[2020-04-12 05:24] LABS: ALBUMIN 1.8 g/dL (3.4-5.0); ANION GAP 5 mmol/L (5-15); CALCIUM 8.6 mg/dL (8.5-10.1); CHLORIDE 107 mmol/L (98-107)
[2020-04-12 05:34] LABS: ALANINE AMINOTRANSFERASE 13 U/L (12-78); ALKALINE PHOSPHATASE 69 U/L (45-117); BILIRUBIN,TOTAL 0.5 mg/dL (0.2-1.0); CREATININE 0.91 mg/dL (0.7-1.3); TOTAL PROTEIN 5.5 g/dL (6.4-8.2)
[2020-04-12 05:40] LABS: MEAN CORPUSCULAR HEMOGLOBIN 27.7 pg (27.5-34.5); MEAN CORPUSCULAR HGB CONC 32.3 g/dL (33.2-36.2); MEAN PLATELET VOLUME 7.2 fL (7.4-10.4); PLATELET COUNT 771 x10^3/uL (130-400); RED BLOOD COUNT 2.64 x10^6/uL (4.38-5.82); RED CELL DISTRIBUTION WIDTH 18.7 % (9.4-14.8)
[2020-04-12 06:09] LABS: BASOPHILS % (AUTO) 1 % (0-1); EOSINOPHILS # (AUTO) 0.13 x10^3/uL (0-0.4); EOSINOPHILS % (AUTO) 1 % (1-7); LYMPHOCYTES # (AUTO) 2.35 x10^3/uL (1-3.4); LYMPHOCYTES % (AUTO) 20 % (22-44); MD SCAN; MONOCYTES # (AUTO) 0.96 x10^3/uL (0.2-0.8); MONOCYTES % (AUTO) 8 % (2-9); NEUTROPHILS # (AUTO) 8.39 x10^3/uL (1.8-6.8); NEUTROPHILS % (AUTO) 70 % (42-75)
[2020-04-12 06:19] LABS: HCT (SEDRATE) 22.6 % (39.2-51.8)
[2020-04-12] MEDS: INSULIN LISPRO 100 UNITS/ML, PEN SQ-INSULIN SCH ×4 (07:00→20:49)
[2020-04-12 07:43] VITALS: BP 115/63
[2020-04-12] MEDS: LACTOBACILLUS CHEW TABLET PO SCH ×3 (08:15→20:49)
[2020-04-12] MEDS: SENNA/DOCUSATE TABLET PO SCH (08:15)
[2020-04-12] MEDS: CALCIUM CARBONATE 500 MG TAB.CHEW PO SCH ×3 (08:15→20:49)
[2020-04-12] MEDS: SODIUM CHLORIDE FLUSH 10ML SYR IVF SCH ×2 (08:17→20:48)
[2020-04-12] MEDS: INSULIN GLARGINE 100 UNITS/ML, PEN SQ-INSULIN SCH ×2 (08:17→20:48)
[2020-04-12 12:52] VITALS: BP 126/63
[2020-04-12 20:40] VITALS: BP 136/67
[2020-04-13] MEDS: HEPARIN 5,000 UNITS/ML, 1ML SQ SCH ×3 (00:43→16:29)
[2020-04-13] MEDS: OXYcodone IR 5MG TABLET PO PRN ×5 (01:32→18:13)
[2020-04-13 02:03] VITALS: BP 102/61
[2020-04-13] MEDS: AMPICILLIN/SULBACTAM 3 GM in SODIUM CHLORIDE 0.9% 100 ML IV SCH ×4 (02:21→20:42)
[2020-04-13 06:26] VITALS: BP 118/61
[2020-04-13] MEDS: LACTOBACILLUS CHEW TABLET PO SCH ×3 (08:38→20:42)
[2020-04-13] MEDS: CALCIUM CARBONATE 500 MG TAB.CHEW PO SCH ×3 (08:38→20:42)
[2020-04-13] MEDS: SENNA/DOCUSATE TABLET PO SCH (08:38)
[2020-04-13] MEDS: INSULIN GLARGINE 100 UNITS/ML, PEN SQ-INSULIN SCH ×2 (08:40→21:07)
[2020-04-13] MEDS: SODIUM CHLORIDE FLUSH 10ML SYR IVF SCH ×2 (08:41→20:42)
[2020-04-13] MEDS: INSULIN LISPRO 100 UNITS/ML, PEN SQ-INSULIN SCH ×4 (08:41→21:07)
[2020-04-13] MEDS ORDERED: HEPA50002 SQ (13:29)
[2020-04-13] MEDS ORDERED: MORP-29 PO (13:29)
[2020-04-13] MEDS ORDERED: OXYC5TAB3 PO (13:29)
[2020-04-13] MEDS ORDERED: CALC200T24 PO (13:29)
[2020-04-13] MEDS ORDERED: ACET325T26 PO (13:29)
[2020-04-13] MEDS ORDERED: POLY17PO5 PO (13:29)
[2020-04-13] MEDS ORDERED: INSU100I13 SQ-INSULIN (13:29)
[2020-04-13] MEDS ORDERED: INSU100I11 SQ-INSULIN (13:29)
[2020-04-13] MEDS ORDERED: AMPI3VIA IV (13:29)
[2020-04-13 13:34] VITALS: BP 131/76
[2020-04-13 19:04] VITALS: BP 131/74
[2020-04-14 00:08] VITALS: BP 125/71
[2020-04-14] MEDS: HEPARIN 5,000 UNITS/ML, 1ML SQ SCH ×3 (00:44→16:19)
[2020-04-14] MEDS: OXYcodone IR 5MG TABLET PO PRN ×4 (00:44→18:53)
[2020-04-14] MEDS: AMPICILLIN/SULBACTAM 3 GM in SODIUM CHLORIDE 0.9% 100 ML IV SCH ×4 (02:49→20:22)
[2020-04-14 05:56] LABS: BASOPHILS # (AUTO) 0.17 x10^3/uL (0-0.1); BASOPHILS % (AUTO) 2 % (0-1); EOSINOPHILS # (AUTO) 0.15 x10^3/uL (0-0.4); EOSINOPHILS % (AUTO) 2 % (1-7); LYMPHOCYTES % (AUTO) 21 % (22-44); MD NO; MEAN CORPUSCULAR HGB CONC 32.7 g/dL (33.2-36.2); MONOCYTES # (AUTO) 0.93 x10^3/uL (0.2-0.8); MONOCYTES % (AUTO) 9 % (2-9); NEUTROPHILS # (AUTO) 6.98 x10^3/uL (1.8-6.8); NEUTROPHILS % (AUTO) 67 % (42-75); PLATELET COUNT 703 x10^3/uL (130-400); RED BLOOD COUNT 2.72 x10^6/uL (4.38-5.82); RED CELL DISTRIBUTION WIDTH 17.8 % (9.4-14.8)
[2020-04-14 06:06] LABS: CHLORIDE 104 mmol/L (98-107)
[2020-04-14 06:20] LABS: ALANINE AMINOTRANSFERASE 13 U/L (12-78); ALKALINE PHOSPHATASE 68 U/L (45-117); ANION GAP 8 mmol/L (5-15); BILIRUBIN,TOTAL 0.5 mg/dL (0.2-1.0); CALCIUM 9.1 mg/dL (8.5-10.1); CREATININE 1.11 mg/dL (0.7-1.3); TOTAL PROTEIN 5.8 g/dL (6.4-8.2)
[2020-04-14 06:25] VITALS: BP 122/50
[2020-04-14] MEDS: INSULIN LISPRO 100 UNITS/ML, PEN SQ-INSULIN SCH ×4 (07:29→20:23)
[2020-04-14] MEDS: LACTOBACILLUS CHEW TABLET PO SCH ×3 (08:29→20:23)
[2020-04-14] MEDS: SENNA/DOCUSATE TABLET PO SCH (08:29)
[2020-04-14] MEDS: CALCIUM CARBONATE 500 MG TAB.CHEW PO SCH ×3 (08:29→20:23)
[2020-04-14] MEDS: INSULIN GLARGINE 100 UNITS/ML, PEN SQ-INSULIN SCH ×2 (08:30→20:23)
[2020-04-14] MEDS: SODIUM CHLORIDE FLUSH 10ML SYR IVF SCH ×2 (08:30→20:24)
[2020-04-14 14:23] VITALS: BP 115/74
[2020-04-14 18:47] VITALS: BP 125/83
[2020-04-15] MEDS: HEPARIN 5,000 UNITS/ML, 1ML SQ SCH ×3 (00:24→15:56)
[2020-04-15] MEDS: OXYcodone IR 5MG TABLET PO PRN ×5 (00:24→17:14)
[2020-04-15 00:41] VITALS: BP 123/78
[2020-04-15] MEDS: AMPICILLIN/SULBACTAM 3 GM in SODIUM CHLORIDE 0.9% 100 ML IV SCH ×3 (02:16→14:45)
[2020-04-15 06:43] VITALS: BP 123/72
[2020-04-15] MEDS: LACTOBACILLUS CHEW TABLET PO SCH ×2 (08:48→15:55)
[2020-04-15] MEDS: CALCIUM CARBONATE 500 MG TAB.CHEW PO SCH ×2 (08:49→15:55)
[2020-04-15] MEDS: SENNA/DOCUSATE TABLET PO SCH (08:49)
[2020-04-15] MEDS: INSULIN GLARGINE 100 UNITS/ML, PEN SQ-INSULIN SCH ×2 (08:50→21:19)
[2020-04-15] MEDS: INSULIN LISPRO 100 UNITS/ML, PEN SQ-INSULIN SCH ×4 (08:50→20:49)
[2020-04-15] MEDS: SODIUM CHLORIDE FLUSH 10ML SYR IVF SCH (08:53)
[2020-04-15 14:40] VITALS: BP 127/73
[2020-04-15 20:39] VITALS: BP 117/73
== END 2020-04-15 20:30 | DRG 853 ==
LOC: ED 05:17 → EDIP 06:51 → CCU 11:22 → 3N 04-06 17:41
PROVIDERS: ADMIT Internal Medicine; ATTEND Hospitalist
PROC: 30233P1 Transfusion of Nonautologous Frozen Red Cells into Peripheral Vein, Percutaneous Approach (ICD-10-PCS; 2020-04-01)
PROC: 5A1945Z Respiratory Ventilation, 24-96 Consecutive Hours (ICD-10-PCS; 2020-04-01)
PROC: 0BH17EZ Insertion of Endotracheal Airway into Trachea, Via Natural or Artificial Opening (ICD-10-PCS; 2020-04-01)
PROC: 0KBP0ZZ Excision of Left Hip Muscle, Open Approach (ICD-10-PCS; principal; 2020-04-01 17:00)
PROC: 0KBR0ZZ Excision of Left Upper Leg Muscle, Open Approach (ICD-10-PCS; 2020-04-03)
PROC: 0KBR0ZZ Excision of Left Upper Leg Muscle, Open Approach (ICD-10-PCS; 2020-04-07)
DX: A41.9 Sepsis, unspecified organism (principal); M72.6 Necrotizing fasciitis; N17.0 Acute kidney failure with tubular necrosis; E43 Unspecified severe protein-calorie malnutrition; G92 Toxic encephalopathy; J18.8 Other pneumonia, unspecified organism; J96.00 Acute respiratory failure, unspecified whether with hypoxia or hypercapnia; R65.21 Severe sepsis with septic shock; D62 Acute posthemorrhagic anemia; E87.0 Hyperosmolality and hypernatremia; E87.1 Hypo-osmolality and hyponatremia; E87.2 Acidosis; J98.11 Atelectasis; L02.416 Cutaneous abscess of left lower limb; L03.116 Cellulitis of left lower limb; Z16.11 Resistance to penicillins; Z99.11 Dependence on respirator [ventilator] status; D50.9 Iron deficiency anemia, unspecified; D69.6 Thrombocytopenia, unspecified; E11.41 Type 2 diabetes mellitus with diabetic mononeuropathy; E11.65 Type 2 diabetes mellitus with hyperglycemia; E83.42 Hypomagnesemia; E87.6 Hypokalemia; I10 Essential (primary) hypertension; M60.80 Other myositis, unspecified site; Z23 Encounter for immunization; Z72.0 Tobacco use; Z79.2 Long term (current) use of antibiotics; B18.2 Chronic viral hepatitis C; Z79.4 Long term (current) use of insulin; Z80.1 Family history of malignant neoplasm of trachea, bronchus and lung; Z82.49 Family history of ischemic heart disease and other diseases of the circulatory system; Z68.25 Body mass index [BMI] 25.0-25.9, adult; Z20.828 Contact with and (suspected) exposure to other viral communicable diseases
CPT/HCPCS: 36415; 36573; 36600; 71045; 71250; 74176; 80048; 80053; 81001; 82330; 82533; 82550; 82803; 82947; 82962; 83036; 83605; 83735; 84100; 84132; 84145; 84295; 84478; 85014; 85018; 85025; 85384; 85610; 85651; 85730; 86022; 86140; 86850; 86900; 86923; 87040; 87070; 87075; 87081; 87086; 87205; 87522; 87635; 88305; 90686; 90732; 93306; 94002; 94003; 96361; 96365; 96375; 96376; 99291; G0378; J0171; J0295; J0610; J0690; J0696; J1170; J1644; J1650; J1815; J1885; J2185; J2250; J2543; J2704; J2710; J3010; J3370; J3480; P9045; Q9967; C1751; J0330; J2060; J2270; J2370; J3475; J3490; J7030; J7040; J7050; P9016

== ENCOUNTER → 2020-08-11 | Outpatient (CLI) | payer MEDICARE ==
[~2020-08-11] MED LIST: ACET325T26 PO; AMPI3VIA IV; CALC200T24 PO; HEPA50002 SQ; INSU100I11 SQ-INSULIN; INSU100I13 SQ-INSULIN; METF500T17 PO; MORP-29 PO; OXYC5TAB3 PO; POLY17PO5 PO
== END | disposition home or self-care (01) ==
LOC: WOUND 09:14
PROVIDERS: ATTEND Podiatrist Foot & Ankle Surgery
DX: E11.621 Type 2 diabetes mellitus with foot ulcer (principal); L97.422 Non-pressure chronic ulcer of left heel and midfoot with fat layer exposed; I10 Essential (primary) hypertension; M72.6 Necrotizing fasciitis; Z87.891 Personal history of nicotine dependence; Z86.19 Personal history of other infectious and parasitic diseases
CPT/HCPCS: 11042; G0463

== ENCOUNTER → 2020-08-25 | Outpatient (CLI) | payer MEDICARE ==
[~2020-08-25] MED LIST changes: -OXYC5TAB3 PO; +OXYC5TAB98 PO
== END | disposition home or self-care (01) ==
LOC: WOUND 08:30
PROVIDERS: ATTEND Podiatrist Foot & Ankle Surgery
DX: E11.621 Type 2 diabetes mellitus with foot ulcer (principal); L97.422 Non-pressure chronic ulcer of left heel and midfoot with fat layer exposed; I10 Essential (primary) hypertension; M72.6 Necrotizing fasciitis; Z87.891 Personal history of nicotine dependence; Z86.19 Personal history of other infectious and parasitic diseases
CPT/HCPCS: 11042

== ENCOUNTER 2020-09-01 08:34 | Outpatient (CLI) | payer MEDICARE | END 2020-09-01 23:59 | disposition home or self-care (01) | LOC: WOUND 08:34 | PROVIDERS: ATTEND Podiatrist Foot & Ankle Surgery | DX: E11.621 Type 2 diabetes mellitus with foot ulcer (principal); L97.424 Non-pressure chronic ulcer of left heel and midfoot with necrosis of bone; I10 Essential (primary) hypertension; Z87.891 Personal history of nicotine dependence; Z86.19 Personal history of other infectious and parasitic diseases; Z79.4 Long term (current) use of insulin | CPT/HCPCS: 97597 ==

== ENCOUNTER → 2020-09-08 | Outpatient (CLI) | payer MEDICARE | END | disposition home or self-care (01) | LOC: WOUND 08:20 | PROVIDERS: ATTEND Podiatrist Foot & Ankle Surgery | DX: E11.621 Type 2 diabetes mellitus with foot ulcer (principal); L97.424 Non-pressure chronic ulcer of left heel and midfoot with necrosis of bone; I10 Essential (primary) hypertension; Z87.891 Personal history of nicotine dependence; Z86.19 Personal history of other infectious and parasitic diseases; Z79.4 Long term (current) use of insulin | CPT/HCPCS: 11042 ==

== ENCOUNTER → 2020-09-22 | Outpatient (CLI) | payer MEDICARE | END | disposition home or self-care (01) | LOC: WOUND 08:23 | PROVIDERS: ATTEND Podiatrist Foot & Ankle Surgery | DX: E11.621 Type 2 diabetes mellitus with foot ulcer (principal); L97.422 Non-pressure chronic ulcer of left heel and midfoot with fat layer exposed; I10 Essential (primary) hypertension; M72.6 Necrotizing fasciitis; Z87.891 Personal history of nicotine dependence; Z86.19 Personal history of other infectious and parasitic diseases; Z79.4 Long term (current) use of insulin | CPT/HCPCS: 11042 ==

== ENCOUNTER 2020-09-29 09:25 | Outpatient (CLI) | payer MEDICARE | END 2020-09-29 23:59 | disposition home or self-care (01) | LOC: WOUND 09:25 | PROVIDERS: ATTEND Podiatrist Foot & Ankle Surgery | DX: E11.621 Type 2 diabetes mellitus with foot ulcer (principal); L97.421 Non-pressure chronic ulcer of left heel and midfoot limited to breakdown of skin; I10 Essential (primary) hypertension; M72.6 Necrotizing fasciitis; Z87.891 Personal history of nicotine dependence; Z86.19 Personal history of other infectious and parasitic diseases; Z79.4 Long term (current) use of insulin | CPT/HCPCS: C5275; Q4166 ==

== ENCOUNTER 2020-10-06 09:52 | Outpatient (CLI) | payer MEDICARE | END 2020-10-06 23:59 | disposition home or self-care (01) | LOC: WOUND 09:52 | PROVIDERS: ATTEND Podiatrist Foot & Ankle Surgery | DX: E11.621 Type 2 diabetes mellitus with foot ulcer (principal); L97.421 Non-pressure chronic ulcer of left heel and midfoot limited to breakdown of skin; I10 Essential (primary) hypertension; M72.6 Necrotizing fasciitis; Z87.891 Personal history of nicotine dependence; Z86.19 Personal history of other infectious and parasitic diseases; Z79.4 Long term (current) use of insulin | CPT/HCPCS: C5275; Q4166 ==

== ENCOUNTER → 2020-10-13 | Outpatient (CLI) | payer MEDICARE | END | disposition home or self-care (01) | LOC: WOUND 08:50 | PROVIDERS: ATTEND Podiatrist Foot & Ankle Surgery | DX: E11.621 Type 2 diabetes mellitus with foot ulcer (principal); L97.421 Non-pressure chronic ulcer of left heel and midfoot limited to breakdown of skin; I10 Essential (primary) hypertension; M72.6 Necrotizing fasciitis; Z87.891 Personal history of nicotine dependence; Z86.19 Personal history of other infectious and parasitic diseases; Z79.4 Long term (current) use of insulin | CPT/HCPCS: C5275; Q4166 ==

== ENCOUNTER → 2020-10-20 | Outpatient (CLI) | payer MEDICARE | END | disposition home or self-care (01) | LOC: WOUND 08:21 | PROVIDERS: ATTEND Internal Medicine Cardiovascular Disease | DX: E11.621 Type 2 diabetes mellitus with foot ulcer (principal); L97.422 Non-pressure chronic ulcer of left heel and midfoot with fat layer exposed; L84 Corns and callosities; I10 Essential (primary) hypertension; Z87.891 Personal history of nicotine dependence; Z86.19 Personal history of other infectious and parasitic diseases; Z79.4 Long term (current) use of insulin; Z79.899 Other long term (current) drug therapy | CPT/HCPCS: 99213 ==

== ENCOUNTER → 2020-11-03 | Outpatient (CLI) | payer MEDICARE | END | disposition home or self-care (01) | LOC: WOUND 08:19 | PROVIDERS: ATTEND Podiatrist Foot & Ankle Surgery | DX: E11.621 Type 2 diabetes mellitus with foot ulcer (principal); L97.422 Non-pressure chronic ulcer of left heel and midfoot with fat layer exposed; L84 Corns and callosities; I10 Essential (primary) hypertension; M72.6 Necrotizing fasciitis; Z87.891 Personal history of nicotine dependence; Z86.19 Personal history of other infectious and parasitic diseases; Z79.4 Long term (current) use of insulin; Z79.899 Other long term (current) drug therapy | CPT/HCPCS: 15275; Q4133 ==

== ENCOUNTER → 2020-11-10 | Outpatient (CLI) | payer MEDICARE | END | disposition home or self-care (01) | LOC: WOUND 09:54 | PROVIDERS: ATTEND Podiatrist Foot & Ankle Surgery | DX: E11.621 Type 2 diabetes mellitus with foot ulcer (principal); L97.422 Non-pressure chronic ulcer of left heel and midfoot with fat layer exposed; L84 Corns and callosities; I10 Essential (primary) hypertension; M72.6 Necrotizing fasciitis; Z87.891 Personal history of nicotine dependence; Z86.19 Personal history of other infectious and parasitic diseases; Z79.4 Long term (current) use of insulin; Z79.899 Other long term (current) drug therapy | CPT/HCPCS: 15275; Q4133 ==

== ENCOUNTER → 2020-11-24 | Outpatient (CLI) | payer MEDICARE | END | disposition home or self-care (01) | LOC: WOUND 08:25 | PROVIDERS: ATTEND Podiatrist Foot & Ankle Surgery | DX: E11.621 Type 2 diabetes mellitus with foot ulcer (principal); L97.422 Non-pressure chronic ulcer of left heel and midfoot with fat layer exposed; L84 Corns and callosities; I10 Essential (primary) hypertension; M72.6 Necrotizing fasciitis; Z87.891 Personal history of nicotine dependence; Z86.19 Personal history of other infectious and parasitic diseases; Z79.4 Long term (current) use of insulin; Z79.899 Other long term (current) drug therapy | CPT/HCPCS: 15275; Q4196 ==

== ENCOUNTER → 2020-12-01 | Outpatient (CLI) | payer MEDICARE | END | disposition home or self-care (01) | LOC: WOUND 08:55 | PROVIDERS: ATTEND Podiatrist Foot & Ankle Surgery | DX: E11.621 Type 2 diabetes mellitus with foot ulcer (principal); L97.421 Non-pressure chronic ulcer of left heel and midfoot limited to breakdown of skin; L84 Corns and callosities; I10 Essential (primary) hypertension; M72.6 Necrotizing fasciitis; Z87.891 Personal history of nicotine dependence; Z86.19 Personal history of other infectious and parasitic diseases; Z79.4 Long term (current) use of insulin; Z79.899 Other long term (current) drug therapy | CPT/HCPCS: 15275; Q4133 ==

== ENCOUNTER → 2020-12-08 | Outpatient (CLI) | payer MEDICARE | END | disposition home or self-care (01) | LOC: WOUND 08:35 | PROVIDERS: ATTEND Podiatrist Foot & Ankle Surgery | DX: E11.621 Type 2 diabetes mellitus with foot ulcer (principal); L97.422 Non-pressure chronic ulcer of left heel and midfoot with fat layer exposed; L84 Corns and callosities; I10 Essential (primary) hypertension; M72.6 Necrotizing fasciitis; Z87.891 Personal history of nicotine dependence; Z86.19 Personal history of other infectious and parasitic diseases; Z79.4 Long term (current) use of insulin; Z79.899 Other long term (current) drug therapy | CPT/HCPCS: 15275; Q4196 ==

== ENCOUNTER → 2020-12-29 | Outpatient (CLI) | payer MEDICARE | END | disposition home or self-care (01) | LOC: WOUND 08:14 | PROVIDERS: ATTEND Podiatrist Foot & Ankle Surgery | DX: E11.621 Type 2 diabetes mellitus with foot ulcer (principal); L97.422 Non-pressure chronic ulcer of left heel and midfoot with fat layer exposed; L84 Corns and callosities; I10 Essential (primary) hypertension; M72.6 Necrotizing fasciitis; E78.00 Pure hypercholesterolemia, unspecified; E43 Unspecified severe protein-calorie malnutrition; Z68.28 Body mass index [BMI] 28.0-28.9, adult; Z87.891 Personal history of nicotine dependence; Z86.19 Personal history of other infectious and parasitic diseases; Z79.899 Other long term (current) drug therapy; Z79.4 Long term (current) use of insulin | CPT/HCPCS: 15275; Q4133 ==

== ENCOUNTER → 2021-01-05 | Outpatient (CLI) | payer MEDICARE | END | disposition home or self-care (01) | LOC: WOUND 08:17 | PROVIDERS: ATTEND Podiatrist Foot & Ankle Surgery | DX: E11.621 Type 2 diabetes mellitus with foot ulcer (principal); L97.422 Non-pressure chronic ulcer of left heel and midfoot with fat layer exposed; L84 Corns and callosities; I10 Essential (primary) hypertension; M72.6 Necrotizing fasciitis; E78.00 Pure hypercholesterolemia, unspecified; E43 Unspecified severe protein-calorie malnutrition; Z68.28 Body mass index [BMI] 28.0-28.9, adult; Z87.891 Personal history of nicotine dependence; Z86.19 Personal history of other infectious and parasitic diseases; Z79.899 Other long term (current) drug therapy; Z79.4 Long term (current) use of insulin | CPT/HCPCS: 15275; Q4133 ==

== ENCOUNTER → 2021-01-19 | Outpatient (CLI) | payer MEDICARE | END | disposition home or self-care (01) | LOC: WOUND 08:49 | PROVIDERS: ATTEND Podiatrist Foot & Ankle Surgery | DX: E11.621 Type 2 diabetes mellitus with foot ulcer (principal); L97.422 Non-pressure chronic ulcer of left heel and midfoot with fat layer exposed; L84 Corns and callosities; I10 Essential (primary) hypertension; M72.6 Necrotizing fasciitis; E78.00 Pure hypercholesterolemia, unspecified; E43 Unspecified severe protein-calorie malnutrition; Z68.28 Body mass index [BMI] 28.0-28.9, adult; Z87.891 Personal history of nicotine dependence; Z86.19 Personal history of other infectious and parasitic diseases; Z79.899 Other long term (current) drug therapy; Z79.4 Long term (current) use of insulin | CPT/HCPCS: 11042 ==

== ENCOUNTER 2021-01-26 09:14 | Outpatient (CLI) | payer MEDICARE | END 2021-01-26 23:59 | disposition home or self-care (01) | LOC: WOUND 09:14 | PROVIDERS: ATTEND Podiatrist Foot & Ankle Surgery | DX: E11.621 Type 2 diabetes mellitus with foot ulcer (principal); L97.422 Non-pressure chronic ulcer of left heel and midfoot with fat layer exposed; L84 Corns and callosities; I10 Essential (primary) hypertension; M72.6 Necrotizing fasciitis; E78.00 Pure hypercholesterolemia, unspecified; E11.69 Type 2 diabetes mellitus with other specified complication; M86.9 Osteomyelitis, unspecified; E43 Unspecified severe protein-calorie malnutrition; Z68.28 Body mass index [BMI] 28.0-28.9, adult; Z87.891 Personal history of nicotine dependence; Z86.19 Personal history of other infectious and parasitic diseases; Z79.899 Other long term (current) drug therapy; Z79.4 Long term (current) use of insulin; Z79.82 Long term (current) use of aspirin | CPT/HCPCS: 97597 ==

== ENCOUNTER 2021-02-09 08:23 | Outpatient (CLI) | payer MEDICARE | END 2021-02-09 23:59 | disposition home or self-care (01) | LOC: WOUND 08:23 | PROVIDERS: ATTEND Podiatrist Foot & Ankle Surgery | DX: E11.621 Type 2 diabetes mellitus with foot ulcer (principal); L97.522 Non-pressure chronic ulcer of other part of left foot with fat layer exposed; L84 Corns and callosities; I10 Essential (primary) hypertension; E78.00 Pure hypercholesterolemia, unspecified; Z87.891 Personal history of nicotine dependence; Z79.4 Long term (current) use of insulin; Z79.82 Long term (current) use of aspirin; Z79.899 Other long term (current) drug therapy; Z86.19 Personal history of other infectious and parasitic diseases | CPT/HCPCS: 11042 ==

== ENCOUNTER → 2021-02-23 | Outpatient (CLI) | payer MEDICARE | END | disposition home or self-care (01) | LOC: WOUND 08:22 | PROVIDERS: ATTEND Podiatrist Foot & Ankle Surgery | DX: E11.621 Type 2 diabetes mellitus with foot ulcer (principal); L97.422 Non-pressure chronic ulcer of left heel and midfoot with fat layer exposed; L84 Corns and callosities; I10 Essential (primary) hypertension; M72.6 Necrotizing fasciitis; E78.00 Pure hypercholesterolemia, unspecified; E43 Unspecified severe protein-calorie malnutrition; Z68.28 Body mass index [BMI] 28.0-28.9, adult; Z87.891 Personal history of nicotine dependence; Z86.19 Personal history of other infectious and parasitic diseases; Z79.899 Other long term (current) drug therapy; Z79.4 Long term (current) use of insulin | CPT/HCPCS: 11042 ==

== ENCOUNTER 2021-03-09 08:32 | Outpatient (CLI) | payer MEDICARE | END 2021-03-09 23:59 | disposition home or self-care (01) | LOC: WOUND 08:32 | PROVIDERS: ATTEND Podiatrist Foot & Ankle Surgery | DX: E11.621 Type 2 diabetes mellitus with foot ulcer (principal); L97.422 Non-pressure chronic ulcer of left heel and midfoot with fat layer exposed; L84 Corns and callosities; I10 Essential (primary) hypertension; M72.6 Necrotizing fasciitis; E78.00 Pure hypercholesterolemia, unspecified; E11.69 Type 2 diabetes mellitus with other specified complication; M86.9 Osteomyelitis, unspecified; E43 Unspecified severe protein-calorie malnutrition; Z68.28 Body mass index [BMI] 28.0-28.9, adult; Z87.891 Personal history of nicotine dependence; Z86.19 Personal history of other infectious and parasitic diseases; Z79.899 Other long term (current) drug therapy; Z79.4 Long term (current) use of insulin; Z79.82 Long term (current) use of aspirin | CPT/HCPCS: 11042; 97597 ==

== ENCOUNTER 2021-03-16 08:21 | Outpatient (CLI) | payer MEDICARE | END 2021-03-16 23:59 | disposition home or self-care (01) | LOC: WOUND 08:21 | PROVIDERS: ATTEND Podiatrist Foot & Ankle Surgery | DX: E11.621 Type 2 diabetes mellitus with foot ulcer (principal); L97.422 Non-pressure chronic ulcer of left heel and midfoot with fat layer exposed; L84 Corns and callosities; I10 Essential (primary) hypertension; M72.6 Necrotizing fasciitis; E78.00 Pure hypercholesterolemia, unspecified; E11.69 Type 2 diabetes mellitus with other specified complication; M86.9 Osteomyelitis, unspecified; E43 Unspecified severe protein-calorie malnutrition; Z68.28 Body mass index [BMI] 28.0-28.9, adult; Z87.891 Personal history of nicotine dependence; Z86.19 Personal history of other infectious and parasitic diseases; Z79.899 Other long term (current) drug therapy; Z79.4 Long term (current) use of insulin; Z79.82 Long term (current) use of aspirin | CPT/HCPCS: 11042 ==

== ENCOUNTER 2021-03-23 08:18 | Outpatient (CLI) | payer MEDICARE | END 2021-03-23 23:59 | disposition home or self-care (01) | LOC: WOUND 08:18 | PROVIDERS: ATTEND Podiatrist Foot & Ankle Surgery | DX: E11.621 Type 2 diabetes mellitus with foot ulcer (principal); L97.422 Non-pressure chronic ulcer of left heel and midfoot with fat layer exposed; L84 Corns and callosities; I10 Essential (primary) hypertension; M72.6 Necrotizing fasciitis; E78.00 Pure hypercholesterolemia, unspecified; E11.69 Type 2 diabetes mellitus with other specified complication; M86.9 Osteomyelitis, unspecified; E43 Unspecified severe protein-calorie malnutrition; Z68.28 Body mass index [BMI] 28.0-28.9, adult; Z87.891 Personal history of nicotine dependence; Z86.19 Personal history of other infectious and parasitic diseases; Z79.899 Other long term (current) drug therapy; Z79.4 Long term (current) use of insulin; Z79.82 Long term (current) use of aspirin | CPT/HCPCS: 11042 ==

== ENCOUNTER 2021-03-30 09:23 | Outpatient (CLI) | payer MEDICARE | END 2021-03-30 23:59 | disposition home or self-care (01) | LOC: WOUND 09:23 | PROVIDERS: ATTEND Podiatrist Foot & Ankle Surgery | DX: E11.621 Type 2 diabetes mellitus with foot ulcer (principal); L97.422 Non-pressure chronic ulcer of left heel and midfoot with fat layer exposed; L84 Corns and callosities; I10 Essential (primary) hypertension; M72.6 Necrotizing fasciitis; E78.00 Pure hypercholesterolemia, unspecified; E11.69 Type 2 diabetes mellitus with other specified complication; M86.9 Osteomyelitis, unspecified; E43 Unspecified severe protein-calorie malnutrition; Z68.28 Body mass index [BMI] 28.0-28.9, adult; Z87.891 Personal history of nicotine dependence; Z86.19 Personal history of other infectious and parasitic diseases; Z79.899 Other long term (current) drug therapy; Z79.4 Long term (current) use of insulin; Z79.82 Long term (current) use of aspirin | CPT/HCPCS: G0463 ==

== ENCOUNTER 2021-04-06 10:13 | Outpatient (CLI) | payer MEDICARE | END 2021-04-06 23:59 | disposition home or self-care (01) | LOC: WOUND 10:13 | PROVIDERS: ATTEND Podiatrist Foot & Ankle Surgery | DX: E11.621 Type 2 diabetes mellitus with foot ulcer (principal); L97.422 Non-pressure chronic ulcer of left heel and midfoot with fat layer exposed; L84 Corns and callosities; I10 Essential (primary) hypertension; M72.6 Necrotizing fasciitis; E78.00 Pure hypercholesterolemia, unspecified; E11.69 Type 2 diabetes mellitus with other specified complication; M86.9 Osteomyelitis, unspecified; E43 Unspecified severe protein-calorie malnutrition; Z68.28 Body mass index [BMI] 28.0-28.9, adult; Z87.891 Personal history of nicotine dependence; Z86.19 Personal history of other infectious and parasitic diseases; Z79.899 Other long term (current) drug therapy; Z79.4 Long term (current) use of insulin; Z79.82 Long term (current) use of aspirin | CPT/HCPCS: 11042 ==

== ENCOUNTER → 2021-04-20 | Outpatient (CLI) | payer MEDICARE | END | disposition home or self-care (01) | LOC: WOUND 09:04 | PROVIDERS: ATTEND Podiatrist Foot & Ankle Surgery | DX: E11.621 Type 2 diabetes mellitus with foot ulcer (principal); L97.422 Non-pressure chronic ulcer of left heel and midfoot with fat layer exposed; L84 Corns and callosities; M72.6 Necrotizing fasciitis; E78.00 Pure hypercholesterolemia, unspecified; E11.69 Type 2 diabetes mellitus with other specified complication; M86.9 Osteomyelitis, unspecified; E43 Unspecified severe protein-calorie malnutrition; Z68.28 Body mass index [BMI] 28.0-28.9, adult; Z87.891 Personal history of nicotine dependence; Z86.19 Personal history of other infectious and parasitic diseases; Z79.899 Other long term (current) drug therapy; Z79.4 Long term (current) use of insulin; Z79.82 Long term (current) use of aspirin ==